=== PATIENT | female | born 1990 | race Caucasian/White ===

== ENCOUNTER 2019-12-02 22:15 | Inpatient (IN) ==
--- OUTSIDE RECORDS SUMMARY | 2019-12-02 22:20 | External Medical Summary | Continuity of Care Document ---
:1990 Author Name Kaelyn Blevins Address Unavailable Unavailable , Care Team Providers Name Role Phone Bonifacio Hawk M.D. [place]available [email or web address] PA-C Unavailable [email or web address] Unavailable Unavailable Assessments Assessed Problems:BCP ( control pills) initiationCystic acne Problems Chicken pox (052.9) (B01.9) Cystic acne (706.1) (L70.0) BCP ( control pills) initiation (V25.01) (Z30.011) Urinary tract infection (599.0) (N39.0) Allergies and Adverse Reactions Penicillins (Allergy) Medications Ashley 28 3-0.03 MG Oral Tablet; TAKE 1 TABLET DAILY. Gen Hawk Start: 29-Nov-2009 Quantity: 1 28 EA Disp Pack Refills: 5 Ashley 28 3-0.03 MG Oral Tablet; Take 1 tablet daily [address] Start: 25-Jul-2010 Quantity: 3 Refills: 3 Procedures BCP ( control pills) initiation Immunizations Immunizations not documented Family History Unknown Family Member Family history of Diabetes Mellitus (V18.0) Status: Active Comments: Family History Family history of Hypertension (V17.49) Status: Active Comments: Family History Family history of Twin Status: Active Comments: F amily History Social History - Smoking Status Tobacco smoking consumption unknown Interventions Medication ChangesYasmin 28 3-0.03 MG Oral Tablet - StartFollow-ups/Referrals Follow-up visit in 3 monthsDiscussion/Summaryencourage condom use. \highlight0 Plan of Treatment Planned Observations Planned Goals not documented Results No Known Results Results not documented Encounters Appointment; Kim Barnes PA-C 25-Jul-2010 13:50 Encounter Diagnosis: Problem not documented
[2019-12-02] MEDS ORDERED: OXYTOCIN 30 UNITS/500 ML BAG IV PRN (23:26)
[2019-12-02 23:50] LABS: Hematocrit (blood only) 34.8 % (37-47); Hemoglobin 12.3 g/dL (12.0-16.0); Mean Corpuscular Hemoglobin 30.8 pg (25-34); Mean Platelet Volume 10.3 fL (7.4-10.4); Platelet Count 217 K/uL (130-400); RDW Coefficient of Variation 13.1 % (11.5-14.5); RDW Standard Deviation 42.1 fL (36.4-46.3); White Blood Count 12.19 K/uL (4.8-10.8)
[2019-12-02 23:57] LABS: Mean Corpuscular Hgb Conc 35.3 g/dL (32-36)
[2019-12-03] MEDS ORDERED: BUTORPHANOL TARTRATE 1 MG/ML VIAL IV ONE (00:32)
[2019-12-03] MEDS ORDERED: BUTORPHANOL TARTRATE 1 MG/ML VIAL ONE (00:38)
[2019-12-03] MEDS: LACTATED RINGER'S 1,000 ML IV PRN ×2 (00:53)
[2019-12-03] MEDS ORDERED: miSOPROStoL 200 MCG TAB PR ONE (03:09)
[2019-12-03] MEDS ORDERED: BENZOCAINE 20% AER SPR 82.5 GM CAN EXT PRN (03:09)
[2019-12-03] MEDS ORDERED: HYDROCORTISONE ACETATE 25 MG SUPP PR PRN (03:09)
[2019-12-03] MEDS ORDERED: SUPERCREAM 0.870% 15 GM JAR EXT PRN (03:09)
[2019-12-03] MEDS ORDERED: ACETAMINOPHEN W/CODEINE #3 1 TAB PO PRN (03:09)
[2019-12-03] MEDS ORDERED: bisacodyL 10 MG SUPP PR PRN (03:09)
[2019-12-03] MEDS ORDERED: DIPHTHERIA/TETANUS/PERTUSSIS 0.5 ML SYR/VIAL IM ONE (03:09)
[2019-12-03] MEDS ORDERED: OXYCODONE/ACETAMINOPHEN 5mg/325mg TAB PO PRN (03:09)
[2019-12-03] MEDS ORDERED: OXYTOCIN 30 UNITS/500 ML BAG IV PRN (03:09)
[2019-12-03] MEDS ORDERED: ACETAMINOPHEN 325 MG TAB PO PRN (03:09)
[2019-12-03] MEDS ORDERED: IBUPROFEN 600 MG TAB PO ONE (03:58)
--- NOTE | 2019-12-03 06:15 | Delivery Summary ---
DATE OF OPERATION: 12/03/2019 The patient is a 1, para 1. Blood type is A positive, group B strep negative, was admitted for evaluation of ruptured membranes, was found to be positive for ruptured membranes. She was having contractions, when she was first examined, she was 4-5 cm. Her only pain medicine was 1 dose of Stadol about an hour and plus prior to delivery. She went to full dilatation, pushed out a live infant via direct occiput anterior position over an intact perineum. Infant was suctioned through the mouth and the nose. Body was delivered without difficulty. Cord was allowed to pulse for 1 minute, then it was clamped and cut. With IV Pitocin running, the placenta was removed intact. Inspection of the perineum revealed a perineal laceration at about 7 o'clock, which went about [address] the vagina. This was identified. The patient was very painful, so we gave her a pudendal block with 1% and about 15 mL on each side. We let some time pass for it to take effect. She also had bilateral lacerations of labia minora. These were infiltrated separately with local. We then used a 2-0 Vicryl to approximate the vaginal mucosa out to beyond the hymenal ring. Each of the labia minora lacerations were repaired with a running 3-0 chromic and following this, sponges were removed from the vagina, 800 mcg of Cytotec was placed rectally. There were no stitches through the rectum. Uterus contracted nicely. Hemostasis was good. Estimated blood loss was 200 mL. Apgars were deferred to the nurses. I attest to the content of the Intraoperative Record and any orders documented therein. Any exception s are noted below.
[2019-12-03] MEDS ORDERED: miSOPROStoL 200 MCG TAB ONE (07:01)
[2019-12-03] MEDS: IBUPROFEN 600 MG TAB PO PRN ×2 (08:15→17:43)
[2019-12-03] MEDS: DOCUSATE SODIUM 100 MG CAP PO SCH ×2 (08:16→20:39)
[2019-12-03] MEDS: PRENATAL VITAMIN 1 TAB PO SCH (08:16)
[2019-12-03] MEDS: FERROUS SULFATE 325 MG TAB PO SCH (08:16)
[2019-12-04] MEDS: IBUPROFEN 600 MG TAB PO PRN ×3 (03:09→14:47)
[2019-12-04 06:51] LABS: Hematocrit (blood only) 32.7 % (37-47); Hemoglobin 10.9 g/dL (12.0-16.0); Mean Corpuscular Hemoglobin 29.1 pg (25-34); Mean Corpuscular Hgb Conc 33.3 g/dL (32-36); Mean Corpuscular Volume 87.4 fL (80-100); Mean Platelet Volume 10.2 fL (7.4-10.4); Platelet Count 227 K/uL (130-400); RDW Coefficient of Variation 13.4 % (11.5-14.5); RDW Standard Deviation 42.7 fL (36.4-46.3); Red Blood Count 3.74 M/uL (4.2-5.4); White Blood Count 13.22 K/uL (4.8-10.8)
[2019-12-04] MEDS: DOCUSATE SODIUM 100 MG CAP PO SCH (08:30)
[2019-12-04] MEDS: PRENATAL VITAMIN 1 TAB PO SCH (08:30)
[2019-12-04] MEDS: FERROUS SULFATE 325 MG TAB PO SCH (08:30)
--- NOTE | 2019-12-04 09:02 | Obstetrical Progress Note ---
Date of Service December 04, 2019 Assessment & Plan (1) Normal course: PPD #1 Pt doing well d/c home with instrcutions Subjective Ambulation: ambulating normally Voiding: no voiding problems Passing Gas:: Yes Diet Tolerance:: regular diet Lochia:: Small Feeding Type:: breast feeding Review of Systems All systems reviewed & are unremarkable except as noted in HPI & below Physical Exam Constitutional WD/WN, vitals as above well developed and well nourished Eyes PERRL, conjunctivae normal, anicteric sclerae Neck trachea midline, no thyromegaly Respiratory normal respiratory effort, lungs clear to auscultation Auscultation: no crackles, no rales and no wheezes Cardiovascular RRR, no murmur, no edema Gastrointestinal (Abdomen) normal bowel sounds, soft, nontender, no hepatosplenomegaly Uterus is below umbilicus Musculoskeletal no cyanosis or clubbing, extremities motor strength 5/5 Skin no rashes, warm and dry Neurologic patellar DTR's 2+ bilat, sensation intact Psychiatric A+Ox3, euthymic affect Genitourinary normal external appearance Results & Data ([facility]) Vital Signs (Past 12 Hours) Vital Signs Temp Pulse Resp BP Pulse Ox 12/04/19 07:30 36.8 C 87 18 107/70 97 12/04/19 00:30 36.4 C L 81 16 108/72
[2019-12-04] MEDS ORDERED: bisacodyL 5 MG TABEC PO SCH (20:00)
== END 2019-12-04 18:15 | disposition home or self-care (01) | DRG 807 ==
LOC: OPB 22:15 → 4S1 22:15 → 4S2 12-03 06:05